=== PATIENT | male | born 1975 | race Caucasian/White ===

== ENCOUNTER 2020-08-23 09:12 | Outpatient (CLI) | payer BC, SELFPAY ==
--- NOTE | 2020-08-23 | EST_ITS ---
Patient Info Name: Todd Vasquez Age: 45 years : 1975 Gender: Male Ht: 72 in Wt: 216 lbs BSA: 2.25 m2 Exam Date: 08/23/2020 9:33 AM Exam Location: [facility] Stress Patient Status: Outpatient Admit Date: 08/23/2020 Staff Ordering Physician: Emerson Lewis MD Attending Provider: Emerson Lewis MD Exercise Technologist: Rosa M Fuentes RD Exercise Physician: Bhavik Singleton DO Exam Type: [place] stress test treadmill Study Info Indications R07.9 - Chest pain, unspecified A treadmill exercise stress test was performed. Summary 1. 1. Negative [place] exercise stress test for ischemic ST changes by ECG criteria. 2. 2. Good functional capacity, achieving 10 METs of workload. 3. 3. Appropriate HR response to exercise. 4. 4. Appropriate HR recovery at 1 minute post exercise. 5. 5. No imaging with stress testing. 6. 6. Patient informed of the above results. Protocol: [place] Stress ECG Details Stage: REST Duration (min): 1 min : 13 sec Speed (mph): 0.0 Grade (%): 0 HR (bpm): 69 SBP (mmHg): 127 DBP (mmHg): 91 METS: --- Stage: REST Duration (min): 9 min : 21 sec Speed (mph): 0.0 Grade (%): 0 HR (bpm): 74 SBP (mmHg): 127 DBP (mmHg): 91 METS: --- Stage: STAGE 1 Duration (min): 1 min : 0 sec Speed (mph): 1.7 Grade (%): 10 HR (bpm): 106 SBP (mmHg): 127 DBP (mmHg): 91 METS: --- Stage: STAGE 1 Duration (min): 2 min : 0 sec Speed (mph): 1.7 Grade (%): 10 HR (bpm): 110 SBP (mmHg): 127 DBP (mmHg): 91 METS: --- Stage: STAGE 1 Duration (min): 3 min : 0 sec Speed (mph): 1.7 Grade (%): 10 HR (bpm): 112 SBP (mmHg): 154 DBP (mmHg): 62 METS: --- Stage: STAGE 2 Duration (min): 1 min : 0 sec Speed (mph): 2.5 Grade (%): 12 HR (bpm): 118 SBP (mmHg): 154 DBP (mmHg): 62 METS: --- Stage: STAGE 2 Duration (min): 2 min : 0 sec Speed (mph): 2.5 Grade (%): 12 HR (bpm): 120 SBP (mmHg): 152 DBP (mmHg): 63 METS: --- Stage: STAGE 2 Duration (min): 3 min : 0 sec Speed (mph): 2.5 Grade (%): 12 HR (bpm): 121 SBP (mmHg): 152 DBP (mmHg): 63 METS: --- Stage: STAGE 3 Duration (min): 1 min : 0 sec Speed (mph): 3.4 Grade (%): 14 HR (bpm): 128 SBP (mmHg): 143 DBP (mmHg): 65 METS: --- Stage: STAGE 3 Duration (min): 2 min : 0 sec Speed (mph): 3.4 Grade (%): 14 HR (bpm): 137 SBP (mmHg): 143 DBP (mmHg): 65 METS: --- Stage: STAGE 3 Duration (min): 3 min : 0 sec Speed (mph): 3.4 Grade (%): 14 HR (bpm): 144 SBP (mmHg): 148 DBP (mmHg): 64 METS: --- Stage: STAGE 4 Duration (min): 0 min : 16 sec Speed (mph): 4.2 Grade (%): 16 HR (bpm): 147 SBP (mmHg): 148 DBP (mmHg): 64 METS: --- Stage: RECOVERY Duration (min): 0 min : 43 sec Speed (mph):
--- NOTE | 2020-08-23 | ECG_ITS ---
Measurements Intervals [place] Rate: 89 P: 56 MA: 145 QRS: 12 QRSD: 89 T: 59 QT: 354 QTc: 433 Interpretive Statements SINUS RHYTHM MINIMAL Q WAVES- HIGH LATERAL LEADS BASELINE ARTIFACT- I, II, V1 BORDERLINE ECG Electronically Signed On 08-23-2020 10:09:39 WRAP CHECKER by Bhavik Singleton D.O.
== END 2020-08-23 09:13 | disposition home or self-care (01) ==
PROVIDERS: Family Provider Internal Medicine; PCP Internal Medicine; Visit Provider Internal Medicine
DX: R07.9 Chest pain, unspecified (principal); R94.31 Abnormal electrocardiogram [ECG] [EKG]
CPT/HCPCS: 93005; 93017

== ENCOUNTER 2024-04-21 15:18 | Outpatient (CLI) | payer BC, SELFPAY ==
--- NOTE | ~2024-04-21 | XR_ITS ---
EXAMINATION: XR shoulder RT min 2V DATE: 04/21/2024 15:35 INDICATION: 2 years of right shoulder pain TECHNIQUE: AP externally rotated, AP oblique externally rotated and transscapular Y views of the righ t shoulder were obtained. COMPARISON: None FINDINGS: Normal alignment. No fracture. Glenohumeral joint is normal. Acromioclavicular joint is normal. Mild to moderate disc height loss and uncovertebral osteoarthritis at the visualized lower cervical spine. Soft tissues are unremarkable. Visualized portions of the lungs are clear. IMPRESSION: Mild to moderate lower cervical spondylosis. Otherwise negative right shoulder radiographs. Reviewed, dictated and finalized at location B.
[2024-04-21 15:37] LABS: Basophils Absolute Auto 0.09 K/mm3 (0.00-0.10); Basophils Percent Auto 0.7 % (0.0-1.0); Eosinophils Absolute Auto 0.47 K/mm3 (0.02-0.50); Eosinophils Percent Auto 3.6 % (1.0-6.0); Hematocrit 46.1 % (40.0-54.0); Hemoglobin 15.8 g/dL (14.0-18.0); Immature Granulocyte Absolute 0.11 K/mm3 (0.00-0.00); Immature Granulocyte Percent A 0.8 % (0.0-0.0); Lymphocytes Absolute Auto 2.51 K/mm3 (1.10-4.50); Lymphocytes Percent Auto 19.3 % (18.0-42.0); Mean Corpuscular HGB Conc 34.3 g/dL (32-36); Mean Corpuscular Hemoglobin 29.6 pg (27.0-31.0); Mean Corpuscular Volume 86.5 fL (78.0-102.0); Mean Platelet Volume 10.4 fl (8.7-11.0); Monocytes Absolute Auto 1.13 K/mm3 (0.10-0.90); Monocytes Percent Auto 8.7 % (2.0-11.0); Neutrophils Absolute Auto 8.69 K/mm3 (1.70-7.20); Neutrophils Percent Auto 66.9 % (50.0-70.0); Platelet Count Result 224 K/mm3 (150-420); Red Blood Count 5.33 M/mm3 (4.70-6.10)
[2024-04-21 16:08] LABS: Hemoglobin A1C 5.7 % (<5.7)
[2024-04-21 16:21] LABS: Alanine Aminotransferase 42 U/L (16-63); Albumin Level 3.9 g/dL (3.4-5.0); Alkaline Phosphatase 94 U/L (46-116); Anion Gap 7 mmol/L (4-12); Aspartate Amino Transferase 24 U/L (15-37); Bilirubin,Total 1.1 mg/dL (0.00-1.00); Blood Urea Nitrogen 16 mg/dL (7-18); Calcium 9.2 mg/dL (8.5-10.1); Carbon Dioxide 30 mmol/L (21-32); Chloride 101 mmol/L (98-108); Cholesterol 247 mg/dL (0-200); Estimated Glomerular Filt Rate > 60; Glucose 101 mg/dL (70-99); HDL Direct 47 mg/dL (40-60); LDL Cholesterol Calculated 134 mg/dL (<130); Osmolality Calculated 287 mOsm/kg (285-295); Potassium 4.4 mmol/L (3.5-5.1); Sodium 138 mmol/L (136-145); Total Protein 7.3 g/dL (6.4-8.2); Triglycerides 331 mg/dL (0-150)
[2024-04-21 16:23] LABS: Thyroid Stimulating Hormone Reflex 0.81 u/IU/mL (0.36-3.74)
== END 2024-04-21 15:19 | disposition home or self-care (01) ==
LOC: CHSLAB 15:20
PROVIDERS: PCP Nurse Practitioner Family; Visit Provider Nurse Practitioner Family
DX: Z00.00 Encounter for general adult medical examination without abnormal findings (principal); M25.511 Pain in right shoulder; M43.02 Spondylolysis, cervical region
CPT/HCPCS: 36415; 73030; 80053; 80061; 83036; 84443; 85025

== ENCOUNTER 2025-04-15 00:54 | Emergency (ER) | payer BC, SELFPAY ==
[2025-04-15 00:57] VITALS: BP 134/94; PULSE 96; RESP 18; TEMP 36.8; O2SAT 96
--- NOTE | 2025-04-15 01:06 | ED.UPPEXIN ---
HPI - Extremity Injury (Upper) General Chief Complaint: Extremity Problem,Nontraumatic Stated Complaint: Elbow/Skin Problem Source: patient Mode of arrival: ambulatory Limitations: no limitations History of Present Illness HPI narrative: Patient is a 49-year-old male with a right elbow inflammation and pain for the past month. He has had this in the past and clindamycin help resolve the problem. He has talked to an orthopedic surgeon and they would like to cut this whole area out to her event read accumulation but he was thinking about doing that in the near future. complaint: injury to: right and elbow Onset (ago): month(s) (One) Other injuries: none Place: home Severity: mild Severity scale (1-10): 4 Relieving factors: movement Exacerbating factors: rest Context: other (Similar issue in the past with resolution with clindamycin) Associated symptoms: denies other symptoms Treatments prior to arrival: other (None) Related Data Allergies Allergy/AdvReac Type Severity Reaction Status Date / Time No Known Allergies Allergy Unknown Verified 04/15/25 01:00 Review of Systems Review of Systems: All systems reviewed & are unremarkable except as noted in HPI and below Constitutional: Constitutional: Reports no additional constitutional complaints Eyes: Eyes: Reports no additional eye complaints ENT: Reports system reviewed and no additional complaints, except as documented Cardiovascular: Cardiovascular: Reports no additional cardiovascular complaints Respiratory: Respiratory: Reports no additional respiratory complaints Gastrointestinal: Gastrointestinal: Reports no additional gastrointestinal complaints Genitourinary: Genitourinary: Reports no additional male genitourinary complaints Musculoskeletal: Musculoskeletal: Reports no additional musculoskeletal complaints Integumentary/Breasts: Skin/Breast: Reports system reviewed and no additional complaints, except as docu Neurologic: Reports system reviewed and no additional complaints, except as documented Psychiatric: Psychiatric: Reports no additional psychiatric complaints Hematologic/Lymphatic: Hematologic/Lymphatic: Reports no additional hematologic/lymphatic complaints Allergic/Immunologic: Allergic/Immunologic: Reports no additional allergic/immunologic complaints PMFSH Family History Family History Mother Patient's mother is in good health Father Family history of type 2 diabetes mellitus Sibling Family history of type 2 diabetes mellitus Grandparent Diabetes mellitus Other Family history of cardiovascular disease Social History Social History Smoking packs per day: 1.5 Smoking cigarettes per day: 30.0 Years smoked: 35 Smoking pack-years: 52.50 Smoking status: Current every day smoker Tobacco type: cigarettes Alcohol intake: current Drinks per week: 6 Substance use: current Substance use type: marijuana Other substance usage details: daily - smoking Do You Feel Safe in your Home?: Yes Lack of Transportation: No Lack of Food: Never True Current Housing: I Have Housing Concerned About Future Housing: No Difficulty Paying Gas/Electric Bills: No Difficulty Paying for Meds: No Currently Unemployed: No Education: Decline to Answer Difficulty w/ Childcare or Family Care: No Exam Const: General: healthy appearing Nutritional Appearance: well nourished Orientation/consciousness: patient oriented x3 HENMT: Head: normal to inspection Ears: external ears normal Face/Nose/Sinus: Normal external nose present Eyes: Pupils: Equal, round and reactive pupils present EOM: EOMs intact bilaterally Direct Ophthalmoscopy: no photophobia Neck: Neck: normal visual inspection Chest: Chest palpation & inspection: normal inspection of the chest Resp: Effort & Inspection: normal respiratory effort and not labored Auscultation: clear to auscultation bilaterally and no crackles Cardio: Rate: regular rate Rhythm: regular rhythm Heart sounds: Murmur heart sound present GI: Inspection: distended GI Palp: Yes Soft to palpation and No Tenderness to palpation present (GI) : General: Yes bladder normal to palpation Urinary Catheter: Urinary Catheter: patent and draining Back/Spine/Pelvis: Back: no CVA tenderness Skin: General skin exam: normal color Rashes: no rashes Wounds: no wounds Neuro: General: patient oriented x3, moves all extremities and no meningeal signs Cranial nerves: Yes Nystagmus not present Speech: normal speech Extrem: General: normal to inspection and no clubbing, cyanosis or edema Psych: Mental Status: mental status grossly normal Affect: normal affect Attitude: cooperative Course Vital Signs Vital signs: Vital Signs Temperature 36.8 C 04/15/25 00:57 Pulse Rate 96 04/15/25 00:57 Respiratory Rate 18 04/15/25 00:57 Blood Pressure 134/94 H 04/15/25 00:57 Pulse Oximetry 96 04/15/25 00:57 Oxygen Delivery Room Air 04/15/25 00:57 Temperature 36.8 C 04/15/25 00:57 Pulse Rate 96 04/15/25 00:57 Respiratory Rate 18 04/15/25 00:57 Blood Pressure 134/94 H 04/15/25 00:57 Pulse Oximetry 96 04/15/25 00:57 Oxygen Delivery Room Air 04/15/25 00:57 MDM - Extremity Injury (Upper) MDM Narrative Medical decision making narrative: Patient is a 49-year-old male with right elbow swelling and inflammation over the past month. We will do steroids and antibiotics. Further drainage and agenda with an outpatient primary and orthopedic surgeon. Discharge Plan Discharge Clinical Impression: Bursitis of right elbow Qualifiers: Elbow bursitis location: unspecified Qualified Code(s): M70.31 - Other bursitis of elbow, right elbow Patient Disposition: Home Condition: Stable Instructions: Antibiotic Form, Elbow Bursitis (ED) Additional Instructions: Please follow-up with an orthopedic surgeon to have this removed. Patient Language: Danish Prescriptions: New prednisone 20 mg tablet 40 mg PO DAILY 3 Days Qty: 6 0RF clindamycin HCl [Cleocin HCl] 300 mg capsule 300 mg PO Q8H 10 Days Qty: 30 0RF No Action cyclobenzaprine 7.5 mg tablet 7.5 mg PO BID PRN (Reason: muscle spasm) Qty: 30 0RF Follow-up/Referrals: Hudson Figueroa APRN [Primary Care Provider, Family Practice] Time of Disposition: 01:16
[2025-04-15] MEDS: CLINDAMYCIN HCL 150 MG CAP 300 MG PO (01:26)
== END 2025-04-15 01:46 | disposition home or self-care (01) ==
PROVIDERS: Emergency Provider Emergency Medicine; PCP Nurse Practitioner Family
DX: M70.31 Other bursitis of elbow, right elbow (principal); F17.210 Nicotine dependence, cigarettes, uncomplicated
CPT/HCPCS: 99283; J7512